=== PATIENT | female | born 1935 | race Caucasian/White ===

== ENCOUNTER 2016-12-11 05:39 | Day surgery (SDC) | payer OTHER ==
[~2016-12-11] VITALS: Ht 162.6 cm; Wt 64.6 kg
[2016-12-11] MEDS ORDERED: NS 1000 ML IV SCH (06:00)
[2016-12-11] MEDS ORDERED: MUPIROCIN 2% OINT 1 APPLIC/GM SYR NASAL SCH (06:00)
[2016-12-11] MEDS ORDERED: ceFAZolin 2 GM PREMIX 50 ML IV SCH (06:15)
[2016-12-11] MEDS ORDERED: METOPROLOL TARTRATE 25 MG TAB PO PRN (06:15)
[2016-12-11] MEDS ORDERED: CHLORHEXIDINE GLUCONATE 2 % 1 PACK (2 CLOTHS) TOP SCH (06:15)
[2016-12-11] MEDS ORDERED: POVIDONE IODINE 5% (ANTISEPSIS KIT) 4 APPLICATIONS EACH NARE SCH (06:15)
[2016-12-11] MEDS ORDERED: SODIUM CHLORID 0.9% 500 ML IV SCH (06:15)
[2016-12-11] MEDS ORDERED: NO Heparin, Lovenox, Coumadin at least 12 hours prior to procedure. XX PRN (06:15)
[2016-12-11] MEDS ORDERED: Hold AM Insulin & AM Hypoglycemic medications in diabetic patients XX PRN (06:15)
[2016-12-11] MEDS ORDERED: LORazepam 1 MG TAB SL SCH (06:15)
[2016-12-11] MEDS ORDERED: LACTATED RINGER'S 1000 ML IV SCH (06:15)
[2016-12-11] MEDS ORDERED: VANCOMYCIN 1000 MG/NS 250 ML IV SCH ×2 (06:15)
[2016-12-11] MEDS ORDERED: INSULIN HUMAN REGULAR 1,000 UNITS/10 ML VIAL SQ PRN (06:15)
[2016-12-11 06:20] VITALS: BP 157/92; PULSE 84; RESP 18; TEMP 97.8; O2SAT 97
[2016-12-11 06:25] LABS: AUTOMATED NEUTROPHIL # 9.9 TH/MM3 (1.8-7.7); BASOPHIL # 0.1 TH/MM3 (0-0.2); BASOPHIL % 0.7 % (0.0-2.0); EOSINOPHIL # 0.1 TH/MM3 (0-0.4); EOSINOPHIL % 0.9 % (0.0-4.0); HEMATOCRIT 39.3 % (35.0-46.0); HEMO FLAGS DIFF FINAL; LYMPH % 12.3 % (9.0-44.0); LYMPHOCYTE # 1.6 TH/MM3 (1.0-4.8); MEAN CELL VOLUME 89.6 FL (80.0-100.0); MEAN CORPUSCULAR HEMOGLOBIN 30.2 PG (27.0-34.0); MEAN CORPUSCULAR HGB CONC 33.7 % (32.0-36.0); MONO % 7.7 % (0.0-8.0); NEUT % 78.4 % (16.0-70.0); PLATELET COUNT 211 TH/MM3 (150-450); RED BLOOD COUNT 4.39 MIL/MM3 (4.00-5.30); RED CELL DISTRIBUTION WIDTH 12.6 % (11.6-17.2); WHITE BLOOD COUNT 12.6 TH/MM3 (4.0-11.0)
[2016-12-11] MEDS ORDERED: LOVA10TA PO (06:56)
[2016-12-11] MEDS ORDERED: NITR1SUB3 SL (06:56)
[2016-12-11] MEDS ORDERED: CARV6.252 PO (06:56)
[2016-12-11] MEDS ORDERED: ASPI1TAB69 PO (06:56)
[2016-12-11] MEDS ORDERED: SITA1TAB2 PO (06:56)
[2016-12-11] MEDS ORDERED: GLIP10TA6 PO (06:56)
[2016-12-11] MEDS ORDERED: HYDR-3801 PO (06:56)
[2016-12-11 06:57] LABS: BICARBONATE 26.5 MEQ/L (21.0-32.0)
[2016-12-11 06:58] LABS: POTASSIUM 5.5 MEQ/L (3.5-5.1)
[2016-12-11] MEDS ORDERED: LIDOCAINE HCL 1% PF 30 ML VIAL ONE (07:58)
[2016-12-11] MEDS ORDERED: VANCOMYCIN 500 MG VIAL ONE (07:58)
[2016-12-11] MEDS ORDERED: CEPH-460 PO (09:11)
[2016-12-11] MEDS ORDERED: ACET300T2 PO (09:11)
[2016-12-11] MEDS ORDERED: ACETAMINOPHEN/CODEINE 300 MG/30 MG TAB PO PRN ×2 (09:15)
[2016-12-11] MEDS ORDERED: SODIUM CHLORIDE 0.9% FLUSH 5 ML FLUSH IVF PRN (09:15)
[2016-12-11] MEDS ORDERED: ONDANSETRON HCL 4 MG/2 ML VIAL IV PRN (09:15)
[2016-12-11] MEDS ORDERED: PROPOFOL 200 MG/20 ML AMP OTHER ONE (10:30)
--- NOTE | 2016-12-11 11:37 | EKG ---
Date Performed: 12/11/2016 Time Performed: 06:30:20 PTAGE: 81 years EKG: --- Warning: Data quality may affect interpretation --- Ventricular pacing Lead(s) unsuitab le for analysis: V5 V6 Pacemaker rhythm - no further analysis Abnormal ECG NO PREVIOUS TRACING DOCTOR: Jozef Henning Interpretating Date/Time 12/11/2016 11:35:59
[2016-12-11] MEDS ORDERED: SODIUM CHLORIDE 0.9% FLUSH 5 ML FLUSH IVF SCH (21:00)
--- NOTE | 2016-12-12 11:48 | MP ---
cc: KRISTIE SAM M.D. DATE OF SURGERY PROCEDURE PERFORMED Biventricular pacer defibrillator removal, biventricular pacer defibrillator replacement, pocket revision. INDICATIONS Mrs. Rogers is an 81-year-old female with history of congestive heart failure, cardiomyopathy, previous biventricular pacer defibrillator implanted, generator end of life, CHF class III last echo in October of 2015, EF was around 48%, on optimal medical treatment, referred for defibrillator removal and replacement. The risks, the nature and the benefit of the procedure are clearly stated to her. The risks include pneumothorax, cardiac perforation, stroke and even . The patient understood and agreed to proceed. PROCEDURE After written informed consent was obtained, the patient was brought to the EP Lab where she was prepped and draped in the usual sterile fashion. Conscious sedation was initiated and maintained throughout the procedure by the anesthesiologist. Once sedation was verified, the left infraclavicular area was anesthetized with 2% Xylocaine. Using the PlasmaBlade, a 3-cm incision was made over the existing generator. This incision was then taken down to the deep fascial layer using Bovie cautery and blunt dissection. Once exposed, the generator was removed from the pocket. Scar tissue was removed from around the lead. The pocket was expanded. Pocket revision was performed. Then the lead was connected from the generator end and tested. The patient is pacemaker dependent. After adequate pacing and sensing thresholds were obtained, the leads were connected to the new generator and placed into the pocket. I did proceed with wound closure. Because of the patient's general condition, I decided not to proceed with device testing. The deep fascial layer was approximated with #2-0 Vicryl suture in a continuous fashion. The subcutaneous layer was approximated with #2-0 Vicryl suture in a continuous fashion. The subcuticular layer was approximated with #2-0 Vicryl suture in a continuous fashion. Dermabond adhesive was applied to the wound, followed by sterile pressure dressing. There was no complication. The patient tolerated procedure. Blood loss minimal. 1. Explanted Hardware: The explanted defibrillator generator is a [employer] Controltronic, serial #[id number]. 2. Implanted Hardware: The implanted biventricular pacer/defibrillator is a Medtronic model #FNQQ2D8, serial #[id number]. 3. Thresholds: The right atrial pacing threshold in the bipolar mode was 0.5 volts at 0.5 milliseconds. Lead impedance 495 ohms. P-wave at 2.1 mV. The right ventricular pacing threshold in the bipolar mode was 1 volt at 0.4 milliseconds, lead impedance 223 ohms. Patient pacemaker dependent. The left ventricle pacing threshold in the bipolar mode was 2.5 volts at 1 millisecond. Lead impedance 722 ohms. 4. Settings: The device set in DDD 60, upper limit 120 beats per minute. LV first by 40 milliseconds. Defibrillatory portion for two zones, one zone was for ventricular tachycardia between 160 to 240 beats per minute. Initial therapy consists of one burst of ATP, one ramp, 81%, 10 pause, 10 millisecond decremental followed by 20, then 25 and all subsequent shocks at 35 joules defibrillatory shock. The second zone set for ventricular tachycardia above 240 beats per minute, first therapy at 25 and also subsequent shocks at 35 joules defibrillatory shock. CONCLUSION Successful biventricular pacer/defibrillator removal, biventricular pacer/defibrillator replacement, pocket revision. RECOMMENDATIONS The patient is going to be transferred to the telemetry unit, will be observed and when stable can be discharged home. Kristie Sam MD HS/SSB /9:07 AM /11:31 AM
== END 2016-12-11 11:28 | disposition home or self-care (01) ==
LOC: HDOC 05:39 → HDIC 05:40 → HDOC 11:28
PROVIDERS: ATTEND Internal Medicine Interventional Cardiology
DX: Z45.02 Encounter for adjustment and management of automatic implantable cardiac defibrillator (principal); I11.0 Hypertensive heart disease with heart failure; I50.9 Heart failure, unspecified; I49.5 Sick sinus syndrome; I42.0 Dilated cardiomyopathy; I25.10 Atherosclerotic heart disease of native coronary artery without angina pectoris; E11.9 Type 2 diabetes mellitus without complications; R53.83 Other fatigue; R06.09 Other forms of dyspnea; Z79.82 Long term (current) use of aspirin
CPT/HCPCS: 33264; 80048; 85025; 93005; 99156; 99157; C1882; J0690; J3370; J7050